=== PATIENT | male | born 1955 | race Caucasian/White ===

== ENCOUNTER → 2017-11-18 | Outpatient (CLI) | payer OTHER ==
--- NOTE | 2017-11-18 16:33 | REP ---
Maxillofacial CT study without contrast: History: Chronic pansinusitis. No comparison imaging. Findings: There is chronic sclerotic bony wall thickening left maxillary sinus. The left maxillary sinus is almost completely opacified. There is extensive opacification of the ethmoid air cells bilaterally. There is an air-fluid level in the right maxillary sinus along with a mucous retention cyst which measures 1.8 cm in greatest diameter. There is mild mucosal thickening in the sphenoid sinus air cells. The frontal sinuses show minimal mucosal thickening but are largely clear. Mastoid aeration is normal and symmetric. No intraorbital or intracranial lesion is seen. Coronal MIP reformats scans demonstrate rightward bowing of the anterior nasal septum without discernible peak. There is evidence of a nasal polyp medial to the middle turbinate on the left side. No other nasal polyp is appreciated. The ostiomeatal complex regions are obscured bilaterally by mucosal thickening. Impression: Nery sinusitis changes. Chronic left maxillary sinusitis with bony wall thickening. Bilateral OMC are obscured. Probable nasal polyp medial to the middle turbinate on the left. Signed by Malcolm Benitez MD 11/18/2017 04:50 P
== END ==
LOC: M RAD 15:23
PROVIDERS: ATTEND Otolaryngology
DX: J32.4 Chronic pansinusitis (principal)

== ENCOUNTER 2018-02-03 08:55 | Day surgery (SDC) | payer OTHER ==
[2018-02-03] MEDS: NS 1,000 ML IV (09:00)
[2018-02-03] MEDS ORDERED: PROPOFOL 200 MG/20 ML VIAL As Ordered (09:44)
[2018-02-03] MEDS ORDERED: LIDOCAINE 2% INJ 100 MG/5 ML SDV (FOR ANES.) As Ordered (09:44)
[2018-02-03] MEDS ORDERED: fentaNYL 100 MCG/2 ML INJECTION (J3010) As Ordered (09:44)
== END 2018-02-03 10:54 | disposition home or self-care (01) ==
LOC: M OPP 08:55
DX: Z12.11 Encounter for screening for malignant neoplasm of colon (principal); K64.0 First degree hemorrhoids; D12.6 Benign neoplasm of colon, unspecified; K22.8 Other specified diseases of esophagus; Q40.2 Other specified congenital malformations of stomach; K44.9 Diaphragmatic hernia without obstruction or gangrene; K22.70 Barrett's esophagus without dysplasia; M13.89 Other specified arthritis, multiple sites; G47.33 Obstructive sleep apnea (adult) (pediatric); Z79.899 Other long term (current) drug therapy; Z88.1 Allergy status to other antibiotic agents; Z87.891 Personal history of nicotine dependence
CPT/HCPCS: 45385

== ENCOUNTER → 2018-06-25 | Outpatient (REF) | payer OTHER ==
[2018-06-26 04:15] LABS: CONTROL LINE HPYORI INT CTR LINE PRESENT; H PYLORI QUALITATIVE IgG NEGATIVE (NEGATIVE)
== END ==
LOC: M LAB REF 18:59
DX: R10.9 Unspecified abdominal pain (principal)
CPT/HCPCS: 86677

== ENCOUNTER → 2019-01-14 | Outpatient (CLI) | payer OTHER ==
[~2019-01-14] MED LIST: BUPR300T34 PO; CLAR10CA3 PO; DYMI137S; FLON1SPR; LYRI75CA PO; MELO15TA28 PO; MULT1TAB18 PO; OSTETAB3 PO; VIAG100T PO; VITA1TAB23 PO
--- NOTE | 2019-01-14 08:31 | REP ---
MAXILLOFACIAL CT WITHOUT CONTRAST: HISTORY: Chronic pansinusitis. COMPARISON: 11/18/2017. Mucosal thickening is present in the sinuses. There is almost complete opacification of the left maxillary and right sphenoid sinuses. Moderate mucosal thickening is present in the ethmoid sinuses. Minimal mucosal thickening is present in the frontal, right maxillary and left sphenoid sinuses. Mucosal thickening involves the ostiomeatal units. The middle and inferior nasal turbinates are partially paradoxical. There is mild deviation of the nasal septum to the right. The nasal septum abuts the right inferior nasal turbinate. The cribriform plate, medial irwin of the orbits and optic canals are intact. The carotid canals form a segment of the posterolateral irwin of the sphenoid sinus. There is thickening and sclerosis of the irwin of the left maxillary sinus consistent with chronic sinusitis. IMPRESSION: Sinus mucosal thickening as described above. Electronically Signed by Luca Jacobs MD 01/14/2019 08:45 A
== END ==
LOC: M RAD 07:05
PROVIDERS: ATTEND Otolaryngology
DX: J32.4 Chronic pansinusitis (principal)

== ENCOUNTER → 2019-06-05 | Outpatient (CLI) | payer OTHER ==
--- NOTE | 2019-06-05 15:12 | REP ---
Clinical: Left knee pain. Technique: AP, lateral, bilateral oblique and sunrise views of the left knee. Findings: Mild/early moderate tricompartmental osteoarthritic degenerative changes includes subchondral sclerosis to the tibial plateau and posterior patellar margin along with joint space narrowing and subtle marginal spurring/early osteophyte formation. Prepatellar swelling and effusion cannot be excluded. No acute fracture or dislocation. Impression: Mild/early moderate tricompartmental osteoarthritic degenerative changes. Electronically Signed by Rah Ly MD 06/05/2019 03:03 P
== END ==
LOC: M ADAMS 14:39
PROVIDERS: ATTEND Physician Assistant Medical
DX: M17.12 Unilateral primary osteoarthritis, left knee (principal)

== ENCOUNTER 2020-06-29 09:31 | Day surgery (SDC) | payer OTHER ==
[~2020-06-29] VITALS: Ht 188 cm; Wt 136.1 kg
[~2020-06-29 09:31] MED LIST changes: +AZEL0.055 NARES; -BUPR300T34 PO; +BUPR300T92 PO; +MONT10TA4 PO; +MULTCAP PO; +NEUR100C PO; -VITA1TAB23 PO; +VITA250T26 PO
[2020-06-29] MEDS ORDERED: LIDOCAINE 2% 100MG/5ML SDV (FOR ANES.) ONE (09:32)
[2020-06-29] MEDS ORDERED: propofoL 200 MG/20 ML VIAL ONE (09:32)
--- NOTE | 2020-08-10 11:26 | ROOR ---
Patient Name: Garrison French Procedure Date: 06/29/2020 9:47 AM Date of : 1955 Age: 64 Room: [facility] Gender: Male Note Status: Finalized Procedure: Upper Endoscopy + Biopsies Indications: Heartburn, Exclusion of Song's esophagus Providers: Marques Gomez MD Referring MD: ALLEGRA ORDOÑEZ JR, MD Requesting Provider: Medicines: Monitored Anesthesia Care Complications: No immediate complications. Procedure: Pre-Anesthesia Assessment: - The heart rate, respiratory rate, oxygen saturations, blood pressure, adequacy of pulmonary ventilation, and response to care were monitored throughout the procedure. The Endoscope was introduced through the mouth, and advanced to the second part of duodenum. The upper GI endoscopy was accomplished without difficulty. The patient tolerated the procedure well. Findings: The Z-line was irregular and was found 40 cm from the incisors. Multiple biopsies were obtained with cold forceps for evaluation to rule out Song's Esophagus randomly at the gastroesophageal junction. A medium-sized hiatal hernia was present. The exam of the stomach was otherwise normal. The exam of the duodenum was otherwise normal. Impression: - Z-line irregular, 40 cm from the incisors. - Medium-sized hiatal hernia. - Multiple biopsies were obtained at the gastroesophageal junction. - The examination was otherwise normal. Recommendation: - Patient has a contact number available for emergencies. The signs and symptoms of potential delayed complications were discussed with the patient. Return to normal activities tomorrow. Written discharge instructions were provided to the patient. - High fiber diet. - Discharge patient to home. - Follow an antireflux regimen. - Continue present medications. - Await pathology results. - Telephone GI clinic for pathology results in 1 week. - Return to referring physician. - Repeat upper endoscopy for surveillance based on pathology results. - The findings and recommendations were discussed with the patient. Marques Gomez MD Marques Gomez MD 06/29/2020 10:03:49 AM Number of Addenda: 0 Note Initiated On: 06/29/2020 9:47 AM Estimated Blood Loss: Estimated blood loss: none.
== END 2020-06-29 10:30 | disposition home or self-care (01) ==
LOC: M OPP 09:31
PROVIDERS: ATTEND Internal Medicine Gastroenterology
DX: K22.8 Other specified diseases of esophagus (principal); K44.9 Diaphragmatic hernia without obstruction or gangrene; R12 Heartburn; K22.70 Barrett's esophagus without dysplasia; Z79.899 Other long term (current) drug therapy; Z88.1 Allergy status to other antibiotic agents; Z87.891 Personal history of nicotine dependence

== ENCOUNTER → 2020-12-07 | Outpatient (REF) | payer OTHER ==
[~2020-12-07] MED LIST changes: -MONT10TA4 PO; +MONT5TAB2 PO
== END ==
LOC: M SFHCADAM 09:34
PROVIDERS: ATTEND Urology
DX: N32.0 Bladder-neck obstruction (principal)

== ENCOUNTER → 2021-05-26 | Outpatient (REF) | payer OTHER ==
[~2021-05-26] MED LIST changes: +MONT10TA10 PO; -MONT5TAB2 PO
== END ==
LOC: M LAB REF 11:34
PROVIDERS: ATTEND Physician Assistant Medical
DX: J32.4 Chronic pansinusitis (principal)

== ENCOUNTER → 2021-06-06 | Outpatient (CLI) | payer OTHER ==
--- NOTE | 2021-06-06 17:47 | REPVR ---
PROCEDURE INFORMATION: Exam: CT Maxillofacial Without Contrast, Sinus Exam date and time: 06/06/2021 10:30 AM Age: 65 years old Clinical indication: Sinusitis; Chronic; Additional info: Chronic pansinusitis TECHNIQUE: Imaging protocol: CT Maxillofacial without contrast. Focus on the sinuses. Radiation optimization: All CT scans at this facility use at least one of these dose optimization techniques: automated exposure control; mA and/or kV adjustment per patient size (includes targeted exams where dose is matched to clinical indication); or iterative reconstruction. COMPARISON: CT Maxilofacial w/out contrast 01/14/2019 7:20 AM FINDINGS: Frontal sinuses: There is mucosal thickening along the floors of the frontal sinuses. Ethmoid air cells: There is moderate ethmoid mucosal thickening. Sphenoid sinuses: There is moderate right and mild left sphenoid sinus mucosal thickening. Maxillary sinuses: There is trace fluid within the right maxillary sinus. There is complete opacification of the left maxillary sinus with bony wall thickening, compatible with chronic sinusitis. The maxillary sinus infundibula are obscured by mucosal thickening. Nasal cavity/Septum: There is rightward nasal septal deviation with a spur. Orbital cavity: Orbits are normal. Globes are unremarkable. Bones/joints: Unremarkable. Soft tissues: Unremarkable. IMPRESSION: Sinus mucosal disease as described with superimposed acute maxillary sinusitis. Electronically signed by: Lauryn May On 06/06/2021 17:46:52 PM
== END ==
LOC: M PLAIMG 10:06
PROVIDERS: ATTEND Physician Assistant Medical
DX: J32.4 Chronic pansinusitis (principal)

== ENCOUNTER → 2021-07-21 | Outpatient (REF) | payer MEDICARE, OTHER | LOC: M LABSMT 08:14 → M SFHCADAM 08:17 | PROVIDERS: ATTEND Urology | DX: N52.01 Erectile dysfunction due to arterial insufficiency (principal) ==

== ENCOUNTER → 2021-08-30 | Outpatient (REF) | payer MEDICARE, OTHER | LOC: M LAB REF 09:19 | PROVIDERS: ATTEND Physician Assistant | DX: S61.502A Unspecified open wound of left wrist, initial encounter (principal); X58.XXXA Exposure to other specified factors, initial encounter; Y92.9 Unspecified place or not applicable; Y93.9 Activity, unspecified; Y99.9 Unspecified external cause status ==

== ENCOUNTER → 2021-11-09 | Outpatient (REF) | payer MEDICARE, OTHER ==
[~2021-11-09] MED LIST changes: -MONT10TA10 PO; +MONT10TA97 PO
[2021-11-09 17:33] LABS: APPEARANCE, URINE CLEAR (CLEAR); BACTERIA, URINE AUTO NEGATIVE (NEGATIVE); BILIRUBIN, URINE AUTO NEGATIVE (NEGATIVE); BLOOD, URINE BLOOD NEGATIVE (NEGATIVE); COLOR, URINE YELLOW (YELLOW); GLUCOSE, URINE (UA) AUTO NEGATIVE (NEGATIVE); KETONE, URINE AUTO NEGATIVE (NEGATIVE); LEUKOCYTE ESTERASE, URINE AUTO NEGATIVE (NEGATIVE); NITRITE, URINE AUTO NEGATIVE (NEGATIVE); PROTEIN, URINE AUTO NEGATIVE (NEGATIVE); RBC, URINE AUTO 0 /HPF (0-3); SPECIFIC GRAVITY URINE AUTO 1.014 (1.002-1.035); SQUAMOUS EPITHELIAL CELL UR AU 0 /HPF (0-6); UROBILINOGEN, URINE AUTO 0.2 mg/dL (0.0-2.0); WBC, URINE AUTO 1 /HPF (0-3)
== END ==
LOC: M SMT 16:21
PROVIDERS: ATTEND Urology
DX: N40.0 Benign prostatic hyperplasia without lower urinary tract symptoms (principal)
CPT/HCPCS: 81001; 87086; G0463

== ENCOUNTER → 2021-12-28 | Outpatient (CLI) | payer MEDICARE, OTHER | LOC: M RAD 14:01 | PROVIDERS: ATTEND Physician Assistant | DX: N53.12 Painful ejaculation (principal); N50.89 Other specified disorders of the male genital organs ==

== ENCOUNTER 2022-06-03 08:35 | Emergency (ER) | payer MEDICARE, OTHER ==
[~2022-06-03] VITALS: Ht 188 cm; Wt 137.5 kg
[2022-06-03 08:36] VITALS: BP 132/74
== END 2022-06-03 09:38 | disposition home or self-care (01) ==
LOC: M ED 08:35
DX: S60.221A Contusion of right hand, initial encounter (principal); W01.0XXA Fall on same level from slipping, tripping and stumbling without subsequent striking against object, initial encounter; K21.9 Gastro-esophageal reflux disease without esophagitis; F32.A Depression, unspecified; Y92.009 Unspecified place in unspecified non-institutional (private) residence as the place of occurrence of the external cause; Y93.9 Activity, unspecified; Y99.9 Unspecified external cause status; Z88.1 Allergy status to other antibiotic agents; Z79.899 Other long term (current) drug therapy

== ENCOUNTER → 2022-06-19 | Outpatient (REF) | payer MEDICARE, OTHER | LOC: M SFHCADAM 09:31 | PROVIDERS: ATTEND Physician Assistant | DX: Z12.5 Encounter for screening for malignant neoplasm of prostate (principal) ==

== ENCOUNTER → 2022-09-27 | Outpatient (CLI) | payer MEDICARE, OTHER ==
[~2022-09-27] MED LIST changes: +DOXY-443 PO; +GABA-1171 PO; +OMEP40CA5 PO; +TADA20TA PO; +TAMS1CAP17 PO
== END ==
LOC: EDSEX → MERGE 09:50 → M LABSMTC 09:50
PROVIDERS: ATTEND Anesthesiology
DX: Z01.812 Encounter for preprocedural laboratory examination (principal); Z11.52 Encounter for screening for COVID-19

== ENCOUNTER → 2022-09-28 | Outpatient (CLI) | payer MEDICARE, OTHER ==
[~2022-09-28] MED LIST changes: +ACET1TAB55 PO; +ASPI-161 PO; +AZEL0.1S; +DOXY100T PO; +LORA-930 PO; +SALI0.652 NARES; +VITMTA PO
== END ==
LOC: M RAD 08:08
PROVIDERS: ATTEND Otolaryngology
DX: J32.4 Chronic pansinusitis (principal); J34.2 Deviated nasal septum; J32.0 Chronic maxillary sinusitis

== ENCOUNTER 2022-10-01 12:34 | Observation (INO) | payer MEDICARE, OTHER ==
[~2022-10-01] VITALS: Ht 185.4 cm; Wt 135.0 kg
[~2022-10-01 12:34] MED LIST changes: -ACET1TAB55 PO; -ASPI-161 PO; -AZEL0.1S; -DOXY100T PO; -LORA-930 PO; -SALI0.652 NARES; -VITMTA PO; +dexameTHASONE 4 MG/ML 1ML VIAL (J1100 PER 1MG) IV ONE
[2022-10-01] MEDS ORDERED: LR 1,000 ML IV SCH ×2 (13:05→19:40)
[2022-10-01] MEDS ORDERED: METHYLENE BLUE 0.5% (5MG/ML) 10 ML AMP (PROVAYBLUE) As Ordered ONE (16:03)
[2022-10-01] MEDS ORDERED: LIDOCAINE W/EPINEPHRINE 1% 20ML VIAL As Ordered ONE (16:03)
[2022-10-01] MEDS ORDERED: SODIUM CHLORIDE 0.9% NASAL GEL 15GM (AYR) As Ordered ONE (16:04)
[2022-10-01] MEDS ORDERED: EPINEPHrine 1MG/ML INJ 30ML MD-VIAL As Ordered ONE ×2 (16:04→18:52)
[2022-10-01] MEDS ORDERED: MIDAZOLAM INJ 2MG/2ML VIAL (J2250 PER 1MG) As Ordered ONE (16:19)
[2022-10-01] MEDS ORDERED: fentaNYL 100 MCG/2 ML INJECTION As Ordered ONE ×2 (16:19→18:53)
[2022-10-01] MEDS ORDERED: propofoL 200 MG/20 ML VIAL As Ordered ONE (16:19)
[2022-10-01] MEDS ORDERED: VASOPRESSIN INJ 20 UNITS/ML VIAL As Ordered ONE (18:21)
[2022-10-01] MEDS ORDERED: ROCURONIUM BROMIDE 50 MG/5 ML VIAL As Ordered ONE (18:22)
[2022-10-01] MEDS ORDERED: SUGAMMADEX SODIUM 500 MG/5 ML VIAL (BRIDION) As Ordered ONE (18:40)
[2022-10-01] MEDS ORDERED: PHENYLephrine 500MCG 5ML (100MCG/ML) SYRINGE As Ordered ONE (18:42)
[2022-10-01] MEDS ORDERED: SEVOFLURANE INHAL SOLN 250 ML BTL As Ordered ONE (19:16)
[2022-10-01] MEDS ORDERED: ACETAMINOPHEN 1000MG 100ML IV BTL (OFIRMEV) (J0131 PER 10MG) As Ordered ONE (19:19)
[2022-10-01] MEDS ORDERED: HYDROMORPHONE HCL 0.5 MG/ 0.5 ML SYRINGE (J1170 PER 1) IV PRN (19:40)
[2022-10-01] MEDS ORDERED: ONDANSETRON 4MG 2ML VIAL IV PRN ×2 (19:40→22:05)
[2022-10-01] MEDS: oxyCODONE 5MG TAB PO PRN ×2 (20:32→21:16)
[2022-10-01] MEDS: fentaNYL 100 MCG/2 ML INJECTION IV PRN ×3 (20:33→21:16)
[2022-10-01] MEDS ORDERED: ACETAMINOPHEN TAB 650MG DOSE (2X325MG) PO PRN (20:40)
[2022-10-01 21:49] LABS: BASO % 0.2 % (0.0-1.0); EOS % 0.1 % (0.0-3.0); HEMATOCRIT 47.3 % (42.0-52.0); HEMOGLOBIN 15.3 g/dl (13.5-17.5); LYMPH # 0.5 10^3/uL (1.5-5.0); LYMPH % 4.7 % (24.0-44.0); MEAN CORPUSCULAR HEMOGLOBIN 30.2 pg (27.0-33.0); MEAN CORPUSCULAR HGB CONC 32.3 g/dl (32.0-36.5); MEAN CORPUSCULAR VOLUME 93.5 fl (80.0-96.0); MONO # 0.2 10^3/uL (0.0-0.8); MONO % 1.5 % (2.0-8.0); NEUTROPHILS # 9.3 10^3/uL (1.5-8.5); NEUTROPHILS % 93.1 % (36.0-66.0); PLATELET COUNT, AUTOMATED 200 10^3/uL (150-450); RED BLOOD COUNT 5.06 10^6/uL (4.30-6.10)
[2022-10-01 21:50] VITALS: BP 175/99
[2022-10-01 22:06] LABS: BLOOD UREA NITROGEN 20 MG/DL (7-18); CALCIUM LEVEL 8.8 MG/DL (8.8-10.2); CARBON DIOXIDE LEVEL 27 MEQ/L (21-32); CHLORIDE LEVEL 105 MEQ/L (98-107); CREATININE FOR GFR 1.27 MG/DL (0.70-1.30); GLOMERULAR FILTRATION RATE > 60.0 (>49); GLUCOSE, FASTING 177 MG/DL (70-100); POTASSIUM SERUM 4.3 MEQ/L (3.5-5.1); SODIUM LEVEL 138 MEQ/L (136-145)
[2022-10-01] MEDS: SODIUM CHLORIDE NASAL 0.65% SPRAY BTL (OCEAN) SCH (22:14)
[2022-10-01] MEDS: DOXYCYCLINE HYCLATE 100MG TABLET PO SCH (22:15)
[2022-10-01] MEDS ORDERED: MORPHINE 2 MG/ML 1ML VIAL IV PRN (22:20)
[2022-10-01 22:22] VITALS: BP 178/100
[2022-10-01 22:43] VITALS: BP 178/100
[2022-10-01] MEDS ORDERED: amLODIPine 5 MG TAB PO ONE (23:00)
[2022-10-01 23:37] VITALS: BP 180/102
[2022-10-02] MEDS ORDERED: MORPHINE 2 MG/ML 1ML VIAL IV PRN
[2022-10-02] MEDS ORDERED: MORPHINE 4 MG/ML 1ML VIAL/SYRINGE IV PRN
[2022-10-02 00:36] VITALS: BP 176/99
[2022-10-02 01:30] VITALS: BP 176/98
[2022-10-02] MEDS ORDERED: VITMTA PO (02:58)
[2022-10-02] MEDS ORDERED: ASPI-161 PO (02:58)
[2022-10-02] MEDS ORDERED: LORA-930 PO (02:58)
[2022-10-02] MEDS ORDERED: AZEL0.1S (02:58)
[2022-10-02] MEDS ORDERED: HOME MED LIST COMPLETE! XX SCH (03:00)
[2022-10-02 04:33] VITALS: BP 160/98
[2022-10-02 05:14] VITALS: BP 159/98
[2022-10-02 07:27] LABS: HEMATOCRIT 43.7 % (42.0-52.0); HEMOGLOBIN 14.5 g/dl (13.5-17.5); MEAN CORPUSCULAR HEMOGLOBIN 30.8 pg (27.0-33.0); MEAN CORPUSCULAR HGB CONC 33.2 g/dl (32.0-36.5); MEAN CORPUSCULAR VOLUME 92.8 fl (80.0-96.0); PLATELET COUNT, AUTOMATED 258 10^3/uL (150-450); RED BLOOD COUNT 4.71 10^6/uL (4.30-6.10); WHITE BLOOD COUNT 9.6 10^3/uL (4.0-10.0)
[2022-10-02 07:57] LABS: BLOOD UREA NITROGEN 20 MG/DL (7-18); CALCIUM LEVEL 8.8 MG/DL (8.8-10.2); CARBON DIOXIDE LEVEL 26 MEQ/L (21-32); CHLORIDE LEVEL 103 MEQ/L (98-107); CREATININE FOR GFR 0.91 MG/DL (0.70-1.30); GLOMERULAR FILTRATION RATE > 60.0 (>49); GLUCOSE, FASTING 149 MG/DL (70-100); POTASSIUM SERUM 4.4 MEQ/L (3.5-5.1); SODIUM LEVEL 135 MEQ/L (136-145)
[2022-10-02] MEDS: DOXYCYCLINE HYCLATE 100MG TABLET PO SCH (08:56)
[2022-10-02] MEDS: SODIUM CHLORIDE NASAL 0.65% SPRAY BTL (OCEAN) SCH (09:00)
[2022-10-02 10:00] VITALS: BP 147/91
[2022-10-02] MEDS ORDERED: DOXY100T PO (10:37)
[2022-10-02] MEDS ORDERED: ACET1TAB55 PO (10:37)
[2022-10-02] MEDS ORDERED: SALI0.652 NARES (10:38)
== END 2022-10-02 11:50 | disposition home or self-care (01) ==
LOC: M SDC 12:34 → EDSEX 14:20 → MERGE 14:20 → UNDOADMOB 20:41 → M ED INP 20:41 → M MS5PR 22:10
PROVIDERS: ADMIT Family Medicine; ATTEND Family Medicine
DX: J32.9 Chronic sinusitis, unspecified (principal); J34.2 Deviated nasal septum; I10 Essential (primary) hypertension; R73.03 Prediabetes; G47.33 Obstructive sleep apnea (adult) (pediatric); E78.5 Hyperlipidemia, unspecified; K21.9 Gastro-esophageal reflux disease without esophagitis; Z79.899 Other long term (current) drug therapy; Z79.82 Long term (current) use of aspirin; Z88.2 Allergy status to sulfonamides; Z88.1 Allergy status to other antibiotic agents; N52.9 Male erectile dysfunction, unspecified; N40.1 Benign prostatic hyperplasia with lower urinary tract symptoms; F32.A Depression, unspecified; Z87.891 Personal history of nicotine dependence
CPT/HCPCS: 30520; 31255; 31296; 36415; 80048; 85025; 85027; 88300; 88305; 96374; G0378; J0131; J0171; J1100; J2250; J2270; J2370; J3010; Q9968

== ENCOUNTER → 2023-05-28 | Outpatient (REF) | payer MEDICARE, OTHER ==
[~2023-05-28] MED LIST changes: +ACET1TAB55 PO; +ASPI-161 PO; +AZEL0.1S; +DOXY100T PO; +LORA-930 PO; +SALI0.652 NARES; +VITMTA PO; -dexameTHASONE 4 MG/ML 1ML VIAL (J1100 PER 1MG) IV ONE
== END ==
LOC: M LAB REF 16:37
PROVIDERS: ATTEND Nurse Practitioner Adult Health
DX: Z11.59 Encounter for screening for other viral diseases (principal)

== ENCOUNTER 2023-08-19 08:51 | Day surgery (SDC) | payer MEDICARE, OTHER ==
[~2023-08-19] VITALS: Ht 188 cm; Wt 127.3 kg
[~2023-08-19 08:51] MED LIST changes: +EQL0.65S; +NS 1,000 ML IV ONE; +TADA5TAB PO
[2023-08-19] MEDS ORDERED: LIDOCAINE 2% 100MG/5ML SDV (FOR ANES.) As Ordered ONE (09:57)
[2023-08-19] MEDS ORDERED: propofoL 200 MG/20 ML VIAL As Ordered ONE ×2 (09:57→10:10)
[2023-08-19 10:22] VITALS: TEMP 98.4
[2023-08-19 10:40] VITALS: BP 156/91; O2SAT 97
== END 2023-08-19 10:50 | disposition home or self-care (01) ==
LOC: M OPP 08:51
PROVIDERS: ATTEND Internal Medicine Gastroenterology
DX: Z12.11 Encounter for screening for malignant neoplasm of colon (principal); Z86.010 Personal history of colon polyps; D12.6 Benign neoplasm of colon, unspecified; K57.30 Diverticulosis of large intestine without perforation or abscess without bleeding; K64.0 First degree hemorrhoids; G47.33 Obstructive sleep apnea (adult) (pediatric); Z79.1 Long term (current) use of non-steroidal anti-inflammatories (NSAID); Z79.51 Long term (current) use of inhaled steroids; Z79.52 Long term (current) use of systemic steroids; Z79.891 Long term (current) use of opiate analgesic; Z79.899 Other long term (current) drug therapy; Z88.1 Allergy status to other antibiotic agents; Z88.2 Allergy status to sulfonamides

== ENCOUNTER → 2023-09-19 | Outpatient (REF) | payer MEDICARE, OTHER ==
[~2023-09-19] MED LIST changes: -NS 1,000 ML IV ONE
== END ==
LOC: M SFHCADAM 09:02
PROVIDERS: ATTEND Physician Assistant
DX: Z12.5 Encounter for screening for malignant neoplasm of prostate (principal)

== ENCOUNTER → 2023-12-11 | Outpatient (CLI) | payer MEDICARE, OTHER | LOC: M RAD 13:27 | PROVIDERS: ATTEND Physician Assistant Surgical | DX: M19.011 Primary osteoarthritis, right shoulder (principal) ==

== ENCOUNTER → 2024-10-01 | Outpatient (CLI) | payer MEDICARE, OTHER ==
[~2024-10-01] MED LIST changes: -ASPI-161 PO; +ASPI-615 PO; -AZEL0.055 NARES; +AZEL1SPR4 NARES; +BUPR-597 PO; -BUPR300T92 PO; +DOXY-441 PO; -DOXY-443 PO
[2024-10-01 09:36] LABS: BASO % 0.8 % (0.0-1.0); EOS # 0.2 10^3/uL (0.0-0.5); EOS % 3.3 % (0.0-3.0); HEMATOCRIT 47.8 % (42.0-52.0); HEMOGLOBIN 15.7 g/dl (13.5-17.5); LYMPH # 1.3 10^3/uL (1.5-5.0); LYMPH % 27.3 % (24.0-44.0); MEAN CORPUSCULAR HEMOGLOBIN 30.1 pg (27.0-33.0); MEAN CORPUSCULAR HGB CONC 32.8 g/dl (32.0-36.5); MEAN CORPUSCULAR VOLUME 91.6 fl (80.0-96.0); MONO # 0.6 10^3/uL (0.0-0.8); MONO % 11.8 % (2.0-8.0); NEUTROPHILS # 2.7 10^3/uL (1.5-8.5); NEUTROPHILS % 56.6 % (36.0-66.0); PLATELET COUNT, AUTOMATED 244 10^3/uL (150-450); RED BLOOD COUNT 5.22 10^6/uL (4.30-6.10); WHITE BLOOD COUNT 4.8 10^3/uL (4.0-10.0)
[2024-10-01 09:36] LABS: APPEARANCE, URINE CLEAR (CLEAR); BACTERIA, URINE AUTO NEGATIVE (NEGATIVE); BILIRUBIN, URINE AUTO NEGATIVE (NEGATIVE); BLOOD, URINE BLOOD NEGATIVE (NEGATIVE); COLOR, URINE STRAW (YELLOW); GLUCOSE, URINE (UA) AUTO NEGATIVE (NEGATIVE); KETONE, URINE AUTO NEGATIVE (NEGATIVE); LEUKOCYTE ESTERASE, URINE AUTO NEGATIVE (NEGATIVE); NITRITE, URINE AUTO NEGATIVE (NEGATIVE); PROTEIN, URINE AUTO NEGATIVE (NEGATIVE); RBC, URINE AUTO 0 /HPF (0-3); SPECIFIC GRAVITY URINE AUTO 1.005 (1.002-1.035); SQUAMOUS EPITHELIAL CELL UR AU 0 /HPF (0-6); UROBILINOGEN, URINE AUTO 0.2 mg/dL (0.0-2.0); WBC, URINE AUTO 0 /HPF (0-3)
[2024-10-01 10:02] LABS: ALBUMIN 3.8 G/DL (3.2-5.2); ALKALINE PHOSPHATASE 79 U/L (40-129); ALT/SGPT 19 U/L (7.0-40); AST/SGOT 9 U/L (<34); BILIRUBIN,TOTAL 0.8 MG/DL (0.3-1.2); BLOOD UREA NITROGEN 23 MG/DL (9-23); CALCIUM LEVEL 9.6 MG/DL (8.3-10.6); CARBON DIOXIDE LEVEL 29 MMOL/L (20-31); CHLORIDE LEVEL 108 MMOL/L (98-107); CREATININE FOR GFR 0.88 MG/DL (0.70-1.30); GLOMERULAR FILTRATION RATE > 60.0 (>49); GLUCOSE, FASTING 86 MG/DL (74-106); POTASSIUM SERUM 4.4 MMOL/L (3.5-5.1); SODIUM LEVEL 141 MMOL/L (136-145); TOTAL PROTEIN 6.7 G/DL (5.7-8.2)
[2024-10-01 10:06] LABS: TOTAL 25(OH) VITAMIN D 31.6 NG/ML (20.0-100.0)
[2024-10-01 11:39] LABS: INR 1.13; PROTHROMBIN TIME 14.8 SECONDS (12.5-14.5)
== END ==
LOC: M RAD 08:19
PROVIDERS: ATTEND Orthopaedic Surgery
DX: Z01.812 Encounter for preprocedural laboratory examination (principal); M19.011 Primary osteoarthritis, right shoulder; Z79.899 Other long term (current) drug therapy

== ENCOUNTER → 2024-10-12 | Outpatient (REF) | payer MEDICARE, OTHER ==
[~2024-10-12] MED LIST changes: -AZEL0.1S; +AZEL137S8
== END ==
LOC: M LAB REF 12:58
PROVIDERS: ATTEND Nurse Practitioner Adult Health
DX: I48.0 Paroxysmal atrial fibrillation (principal)